=== PATIENT | female | born 1985 | race Caucasian/White ===

== ENCOUNTER → 2016-11-18 | Outpatient (CLI) | payer OTHER ==
[~2016-11-18] MED LIST: CLC100 PO; FRRS300 PO; KFL/250 PO; LEVO125T72 PO; LIOT25TA10 PO; MTR600X PO; OXYC5TAB PO
[2016-11-18 13:07] LABS: THYROID STIMULATING HORMONE 0.227 uIu/ml (0.300-4.500)
== END | disposition home or self-care (01) ==
LOC: C.LAB 10:16
PROVIDERS: ATTEND Nurse Practitioner Adult Health
DX: E03.9 Hypothyroidism, unspecified (principal); R79.89 Other specified abnormal findings of blood chemistry

== ENCOUNTER → 2017-09-13 | Outpatient (CLI) | payer OTHER ==
[2017-09-13 16:09] LABS: THYROID STIMULATING HORMONE 0.759 uIu/ml (0.300-4.500)
== END | disposition home or self-care (01) ==
LOC: C.LAB 14:39
PROVIDERS: ATTEND Nurse Practitioner Adult Health
DX: E03.9 Hypothyroidism, unspecified (principal)